=== PATIENT | female | born 1985 | race Caucasian/White ===

== ENCOUNTER 2019-07-23 12:49 | Outpatient (CLI) | payer OTHER, SELFPAY ==
--- NOTE | ~2019-07-23 | CT_ITS ---
EXAMINATION: CT abdomen pelvis w con INDICATION: Left upper quadrant pain TECHNIQUE: Computed tomographic images of the abdomen and pelvis were obtained after the administrati on of 100 cc of Omnipaque 350 intravenous contrast. The dose-length product (DLP) was 1473.06 mGy-cm. Automated exposure control and iterative reconstruction technique were employed. COMPARISON: 05/18/2005 FINDINGS: The lung bases are clear. The heart size is normal. Punctate calcifications in an otherwise normal spleen likely represent healed granulomatous disease. The liver, pancreas, gallbladder, and a drenal glands are normal. There is a 7 mm cyst of the right kidney. The left kidney is unremarkable. No pathologically enlarged abdominal or pelvic lymph nodes are identified. There is no free intraperi toneal gas or evidence of bowel obstruction. There are changes of interval appendectomy. There is mil d lumbar spondylosis. There appears to be a short segment of colonic wall thickening and inflammatory change near the hepatic flexure of the transverse colon. IMPRESSION: 1. Possible mild colitis involving the hepatic flexure of the transverse colon. Reviewed, dictated and finalized at location A.
== END 2019-07-23 12:50 | disposition home or self-care (01) ==
PROVIDERS: PCP Family Medicine; Visit Provider Family Medicine
DX: R10.12 Left upper quadrant pain (principal); R93.89 Abnormal findings on diagnostic imaging of other specified body structures
CPT/HCPCS: 74177; Q9967

== ENCOUNTER 2019-08-11 13:48 | Emergency (ER) | payer OTHER, SELFPAY ==
--- NOTE | ~2019-08-11 | CT_ITS ---
EXAMINATION: CT abdomen pelvis w con EXAM DATE: 08/11/2019 16:19 INDICATION: Left side abdominal pain. TECHNIQUE: Spiral CT of the abdomen and pelvis was performed following intravenous injection of 100 m L Omnipaque 350. Axial, coronal and sagittal images were reviewed. The dose-length product (DLP) fo r this examination was 1540.54 mGy-cm. The exposure was tailored according to patient size (auto mA exposure control), and iterative reconstruction (ASIR) was used as additional dose reduction techniqu e. Comparison is made to prior examination from 07/23/2019 . FINDINGS: The liver, spleen, adrenal glands and pancreas are unremarkable. Gallbladder is unremarkab le. No biliary obstruction. Portal and splenic veins are patent. Kidneys enhance symmetrically. T here is no hydronephrosis. The uterus and ovaries are unremarkable, no adnexal mass. The bladder i s unremarkable. There is no retroperitoneal or pelvic lymphadenopathy. There are surgical changes consistent with appendectomy. The stomach and small bowel are unremarkab le. There is expected amount of colonic stool. No free intraperitoneal gas. The heart is normal in size. There are no pericardial or pleural effusions. The lung bases are unremarkable. The bones are unremarkable. IMPRESSION: 1. No acute intra-abdominal findings. Reviewed, dictated and finalized at location A.
[2019-08-11 13:58] VITALS: BP 147/76; PULSE 96; RESP 16; TEMP 37.4; O2SAT 100
[2019-08-11 14:31] LABS: Add Urine Microscopic? YES; Appearance Urine Clear (Clear); Bacteria Urine Trace /hpf; Bilirubin Urine Negative (Negative); Blood Urine Negative (Negative); Color Urine Yellow (Yellow); Glucose Urine UA Negative (Negative); Ketones Urine Negative (Negative); Leukocyte Esterase Ur Negative LEU/UL (Negative); Mucus Urine Rare /lpf; Nitrate Urine Negative (Negative); Protein Urine Negative (Negative); RBC Urine 0-2 /hpf (0-2); Squamous Epithelial Cell Urine Few /hpf (Few); Urobilinogen Urine Negative mg/dL (<2.0); WBC Urine 0-3 /hpf
[2019-08-11 15:34] LABS: Basophils Percent Auto 0.5 % (0.2-1.2); Eosinophils Absolute Auto 0.1 K/mm3 (0-0.3); Eosinophils Percent Auto 1.3 % (0-4.4); Hematocrit 41.9 % (37.0-47.0); Hemoglobin 13.6 g/dL (12.0-15.0); Immature Granulocyte Absolute 0.01 K/mm3 (0.00-0.031); Immature Granulocyte Percent A 0.2 % (0-0.5); Lymphocytes Absolute Auto 1.33 K/mm3 (0.9-3.2); Lymphocytes Percent Auto 24.1 % (18.3-44.2); Mean Corpuscular HGB Conc 32.5 g/dl (32-36); Mean Corpuscular Hemoglobin 27.1 pg (26-34); Mean Corpuscular Volume 83.6 fl (80-100); Mean Platelet Volume 12.2 fl (7.4-10.4); Monocytes Absolute Auto 0.3 K/mm3 (0.1-0.6); Monocytes Percent Auto 4.9 % (2.6-8.5); Neutrophils Absolute Auto 3.8 K/mm3 (1.3-6.7); Platelet Count Result 265 k/mm3 (150-375); Red Blood Count 5.01 M/mm3 (4.2-5.4); Red Cell Distribution Width 12.9 % (11.5-14.5); White Blood Count 5.5 K/mm3 (4.5-10.0)
[2019-08-11 15:39] LABS: Blood Urea Nitrogen 13 mg/dL (7-17); Calcium 9.8 mg/dL (8.4-10.2); Carbon Dioxide 29 mmol/L (22-30); Chloride 107 mmol/L (98-107); Estimated CRCL calculation 116 ml/min; Estimated Glomerular Filt Rate > 60; Glucose 85 mg/dL (65-105); Sodium 142 mmol/L (137-145)
[2019-08-11 16:04] VITALS: BP 132/81; PULSE 82; RESP 18; TEMP 36.9; O2SAT 99
--- NOTE | 2019-08-11 16:28 | ED.BACK ---
HPI - Back Pain/Injury General Chief Complaint: Back Pain/Injury Stated Complaint: Flank pain, UTI symptoms Time Seen by Provider: 08/11/19 14:27 Source: patient Mode of arrival: ambulatory Limitations: no limitations History of Present Illness HPI Narrative: This is a 34 year old female that presents to the ER for intermittent left sided abdominal pain x 2 weeks. Reports she was seen at the urgent care for this and diagnosed with a UTI. Reports she has been taking Macrobid with little relief. Also reports she had seen her PCP for this and had a CT scan of her abdomen and pelvis 2 weeks ago. Was told she had a cyst on her kidney. Does report some urinary discomfort. Denies fever, nausea, vomiting, or hematuria. Related Data Home Medications Medication Instructions Recorded Confirmed nitrofurantoin macrocrystal 08/11/19 Allergies Allergy/AdvReac Type Severity Reaction Status Date / Time No Known Allergies Allergy Verified 07/16/19 09:39 Review of Systems Review of Systems: Narrative: CONSTITUTIONAL: Denies fever GASTROINTESTINAL: Reports abdominal pain. Denies nausea, vomiting, or diarrhea. GENITOURINARY: Reports dysuria. Denies hematuria. All systems reviewed & are unremarkable except as noted in HPI and below PMFSH Past Medical History Medical History (Updated 08/11/19 @ 17:18 by Marylin Dupont PA-C) LUQ abdominal pain Social History Social History Smoking status: Never smoker Alcohol intake: current Exam Narrative: Exam Narrative: GENERAL: Well-appearing, obese, and in no acute distress. HEAD: Normocephalic, atraumatic. EYES: EOMI. CHEST: Clear to auscultation. No respiratory distress. No wheezes rales or rhonchi HEART: Regular rate and rhythm. No murmur heard. Normal peripheral pulses. ABDOMEN: Soft, nondistended, normal active bowel sounds. Mild tenderness palpation of the left side abdomen, without guarding. No CVA tenderness EXTREMITIES: Normal range of motion. No edema. SKIN: Warm, dry, no rash. NEURO: No focal deficits. Alert and oriented x3. PSYCH: Normal mood and affect Course Vital Signs Vital signs: Vital Signs Temperature 99.4 F 08/11/19 13:58 Pulse Rate 96 08/11/19 13:58 Respiratory Rate 16 08/11/19 13:58 Blood Pressure 147/76 H 08/11/19 13:58 Pulse Oximetry 100 08/11/19 13:58 Temperature 98.4 F 08/11/19 16:04 Pulse Rate 82 08/11/19 16:04 Respiratory Rate 18 08/11/19 16:04 Blood Pressure 132/81 08/11/19 16:04 Pulse Oximetry 99 08/11/19 16:04 MDM - Back Pain/Injury MDM Narrative Medical decision making narrative: Patient presents to the ER for left sided flank pain and dysuria. She is afebrile and nontoxic appearing. CBC and metabolic panel are without acute changes. UA is normal. CT abdomen/pelvis is without acute changes. Patient had been taking Macrobid for her UTI by urgent care and has not had relief of symptoms. Will switch to different oral antibiotic. Patient is stable and felt appropriate for further outpatient evaluation. Patient is to follow up with her primary care doctor Lab Data Attestation: I reviewed the patient's lab results. Result diagrams: 08/11/19 15:19 08/11/19 15:19 Labs: Lab Results 08/11/19 08/11/19 08/11/19 Range/Units 14:19 15:19 15:19 WBC 5.5 (4.5-10.0) K/mm3 RBC 5.01 (4.2-5.4) M/mm3 Hgb 13.6 (12.0-15.0) g/dL Hct 41.9 (37.0-47.0) % MCV 83.6 (80-100) fl MCH 27.1 (26-34) pg MCHC 32.5 (32-36) g/dl RDW 12.9 (11.5-14.5) % Plt Count 265 (150-375) k/mm3 MPV 12.2 H (7.4-10.4) fl Immature Gran % (Auto) 0.2 (0-0.5) % Neut % (Auto) 69.0 (45.5-73.1) % Lymph % (Auto) 24.1 (18.3-44.2) % [place] % (Auto) 4.9 (2.6-8.5) % Eos % (Auto) 1.3 (0-4.4) % Baso % (Auto) 0.5 (0.2-1.2) % Lymph # (Auto) 1.33 (0.9-3.2) K/mm3 [place] # (Auto) 0.3 (0.1-0.6) K/mm3
[2019-08-11 17:30] VITALS: BP 129/86; PULSE 68; RESP 18; TEMP 36.4; O2SAT 100
== END 2019-08-11 17:47 | disposition home or self-care (01) ==
PROVIDERS: Physician Assistant; Emergency Provider Emergency Medicine; PCP Family Medicine
DX: N30.00 Acute cystitis without hematuria (principal)
CPT/HCPCS: 36415; 74177; 80048; 81001; 81025; 85025; 99284; Q9967

== ENCOUNTER 2021-12-29 12:18 | Outpatient (CLI) | payer OTHER, SELFPAY ==
--- NOTE | ~2021-12-29 | US_ITS ---
US renal BI 12/29/2021 13:10 Procedure: Realtime transabdominal ultrasound of the kidneys and bladder. Indication: Renal cyst Comparison: CT dated 08/11/2019 Findings: Renal echotexture is normal bilaterally without hydronephrosis, contour deforming mass or r enal calculus. There is a right renal cyst measuring 2.4 x 2.2 x 1.6 cm. The right kidney measures 10 .9 cm and left kidney measures 12.3 cm. Bladder within normal limits. Impression: 1: Right renal cyst medially measuring 2.4 cm maximum dimension. Reviewed, dictated and finalized at location B. Impression: 1: Right renal cyst medially measuring 2.4 cm maximum dimension.
== END 2021-12-29 12:19 | disposition home or self-care (01) ==
PROVIDERS: PCP Internal Medicine; Visit Provider Internal Medicine
DX: N28.1 Cyst of kidney, acquired (principal)
CPT/HCPCS: 76775

== ENCOUNTER 2022-03-25 13:09 | Outpatient (CLI) | payer OTHER, SELFPAY ==
[2022-03-25 13:39] LABS: Alanine Aminotransferase 23 U/L (6-35); Albumin Level 4.1 g/dL (3.5-5.1); Alkaline Phosphatase 53 U/L (38-126); Anion Gap 4 mmol/L (8-16); Aspartate Amino Transferase 22 U/L (14-36); Bilirubin,Total 0.4 mg/dL (0.2-1.3); Blood Urea Nitrogen 8 mg/dL (7-17); Calcium 8.8 mg/dL (8.4-10.2); Carbon Dioxide 31 mmol/L (22-30); Chloride 104 mmol/L (98-107); Cholesterol 193 mg/dL (0-200); Estimated Glomerular Filt Rate > 60; Glucose 82 mg/dL (65-110); HDL Direct 49 mg/dL; Potassium 3.9 mmol/L (3.4-5.0); Sodium 139 mmol/L (137-145); Triglycerides 72 mg/dL (<150)
[2022-03-25 13:50] LABS: LDL Cholesterol Direct 112 mg/dL
[2022-03-25 15:03] LABS: Free T4 Free Thyroxine 1.16 ng/mL (0.78-2.19); Vitamin D 25 Hydroxy 21.3 ng/mL
[2022-03-28 13:03] LABS: Insulin Level Total 8.5 uIU/mL (<=19.6)
[2022-03-28 19:29] LABS: C-Peptide 2.94 ng/mL (0.80-3.85)
== END 2022-03-25 13:10 | disposition home or self-care (01) ==
LOC: ANHLAB 13:11
PROVIDERS: PCP Internal Medicine; Visit Provider Internal Medicine
DX: E55.9 Vitamin D deficiency, unspecified (principal); E03.9 Hypothyroidism, unspecified; Z79.899 Other long term (current) drug therapy
CPT/HCPCS: 36415; 80053; 80061; 82306; 83036; 83525; 84439; 84443; 84681

== ENCOUNTER 2022-10-14 07:17 | Outpatient (CLI) | payer OTHER, SELFPAY ==
[2022-10-14 07:47] LABS: Chloride 105 mmol/L (98-107)
[2022-10-14 07:54] LABS: Alanine Aminotransferase 30 U/L (6-35); Albumin Level 4.3 g/dL (3.5-5.1); Alkaline Phosphatase 57 U/L (38-126); Anion Gap 7 mmol/L (8-16); Aspartate Amino Transferase 31 U/L (14-36); Bilirubin,Total 0.3 mg/dL (0.2-1.3); Blood Urea Nitrogen 10 mg/dL (7-17); Carbon Dioxide 28 mmol/L (22-30); Cholesterol 133 mg/dL (0-200); Estimated Glomerular Filt Rate > 60; Glucose 117 mg/dL (65-110); HDL Direct 35 mg/dL; Potassium 3.6 mmol/L (3.4-5.0); Sodium 140 mmol/L (137-145); Triglycerides 96 mg/dL (<150)
[2022-10-14 08:00] LABS: LDL Cholesterol Direct 84 mg/dL
[2022-10-14 08:06] LABS: Free T4 Free Thyroxine 1.08 ng/mL (0.78-2.19); Vitamin D 25 Hydroxy 24.5 ng/mL
[2022-10-14 08:15] LABS: Hemoglobin A1C 5.2 % (<5.7)
[2022-10-18 11:04] LABS: Insulin Level Total 31.5 uIU/mL (<=19.6)
[2022-10-18 13:27] LABS: Homocysteine 7.4 umol/L (<10.4)
[2022-10-20 05:46] LABS: Triiodothyronine T3 Free 3.1 pg/mL (2.3-4.2)
== END 2022-10-14 07:18 | disposition home or self-care (01) ==
LOC: ANHLAB 07:18
PROVIDERS: PCP Internal Medicine; Visit Provider Internal Medicine
DX: Z76.89 Persons encountering health services in other specified circumstances (principal); E03.9 Hypothyroidism, unspecified; E55.9 Vitamin D deficiency, unspecified; Z13.1 Encounter for screening for diabetes mellitus; Z68.37 Body mass index [BMI] 37.0-37.9, adult; Z79.899 Other long term (current) drug therapy; Z13.220 Encounter for screening for lipoid disorders
CPT/HCPCS: 36415; 80053; 80061; 82306; 83036; 83090; 83525; 84439; 84443; 84481

== ENCOUNTER 2024-01-23 08:39 | Outpatient (CLI) | payer BC, SELFPAY ==
[2024-01-23 09:00] LABS: Basophils Percent Auto 0.5 % (0.2-1.2); Eosinophils Absolute Auto 0.1 K/mm3 (0-0.3); Eosinophils Percent Auto 1.7 % (0-4.4); Hematocrit 43.4 % (37.0-47.0); Hemoglobin 14.1 g/dL (12.0-15.0); Immature Granulocyte Absolute 0.02 K/mm3 (0.00-0.031); Immature Granulocyte Percent A 0.3 % (0-0.5); Lymphocytes Absolute Auto 1.46 K/mm3 (0.9-3.2); Mean Corpuscular HGB Conc 32.5 g/dl (32-36); Mean Corpuscular Hemoglobin 27.2 pg (26-34); Mean Corpuscular Volume 83.8 fl (80-100); Mean Platelet Volume 10.7 fl (7.4-10.4); Monocytes Absolute Auto 0.3 K/mm3 (0.1-0.6); Neutrophils Absolute Auto 4.7 K/mm3 (1.3-6.7); Neutrophils Percent Auto 70.5 % (45.5-73.1); Platelet Count Result 263 k/mm3 (150-375); Red Blood Count 5.18 M/mm3 (4.2-5.4); Red Cell Distribution Width 13.2 % (11.5-14.5); White Blood Count 6.6 K/mm3 (4.5-10.0)
[2024-01-23 09:15] LABS: Alanine Aminotransferase 22 U/L (6-35); Albumin Level 4.8 g/dL (3.5-5.1); Alkaline Phosphatase 60 U/L (38-126); Anion Gap 9 mmol/L (4-12); Aspartate Amino Transferase 24 U/L (14-36); Bilirubin,Total 0.4 mg/dL (0.2-1.3); Blood Urea Nitrogen 13 mg/dL (7-17); Calcium 9.7 mg/dL (8.4-10.2); Carbon Dioxide 26 mmol/L (22-30); Chloride 106 mmol/L (98-107); Cholesterol 150 mg/dL (0-200); Estimated Glomerular Filt Rate > 60; Glucose 91 mg/dL (65-110); HDL Direct 45 mg/dL; Potassium 4.3 mmol/L (3.4-5.0); Sodium 141 mmol/L (137-145); Triglycerides 82 mg/dL (<150)
[2024-01-23 09:26] LABS: LDL Cholesterol Direct 74 mg/dL
[2024-01-23 10:20] LABS: Free T4 Free Thyroxine 0.77 ng/mL (0.78-2.19); Vitamin D 25 Hydroxy 46.9 ng/mL
[2024-01-23 11:45] LABS: Hemoglobin A1C 5.1 % (<5.7)
== END 2024-01-23 08:40 | disposition home or self-care (01) ==
PROVIDERS: PCP Internal Medicine; Visit Provider Internal Medicine
DX: E03.9 Hypothyroidism, unspecified (principal); E78.2 Mixed hyperlipidemia; E55.9 Vitamin D deficiency, unspecified; Z79.899 Other long term (current) drug therapy
CPT/HCPCS: 36415; 80053; 80061; 82306; 83036; 84439; 84443; 85025

== ENCOUNTER 2024-08-06 13:31 | Outpatient (CLI) | payer BC, SELFPAY ==
--- OUTSIDE RECORDS SUMMARY | 2024-08-06 13:38 | XMS_ITS | Referral Summary ---
Author Organization [facility] [address] [place] [id number] Care Team Providers Care Nature Photographer Name Role Phone Tucker Sidhu MD Primary Care Provider [phone] Jewel Brooks MD Unavailable [phone] Encounters Date Type Department Care Team Description 08/01/2024 Results Follow-Up [facility] at [address] [address] Amee Marquez NP XR Foot Left 3 or More Views 08/01/2024 8:40 AM CDT Ancillary Procedure [facility] at [address] [address] Left foot pain 08/01/2024 8:15 AM CDT Office Visit [facility] at [address] [address] Amee Marquez NP Left foot pain (Primary Dx) from Last 3 Months Allergies No known active allergies Medications inulin (FIBER GUMMIES ORAL)Indication s:constipation Take 5 g by mouth nightly Active biotin 2,500 mcg capsuleIndicati ons:Biotin Deficiency Take 1 capsule by mouth nightly Active cyclobenzaprine (FLEXERIL) 10 mg tabletIndicatio ns:Post Surgical Pain Take one tablet up to 3 times per day as needed for muscle spasms. 30 tablet 1 Active Slynd tablet tablet 2 Active metFORMIN (GLUCOPHAGE) 500 mg tablet Take 1 tablet (500 mg total) by mouth 2 (two) times a day 4 Active rosuvastatin (CRESTOR) 20 mg tablet Take 1 tablet (20 mg total) by mouth daily [address] (CYMBALTA) 60 mg capsule TAKE 1 CAPSULE BY MOUTH ONCE DAILY. TO START AFTER FIRST WEEK OF 30MG IS FINISHED 4 Active mupirocin (BACTROBAN) 2 % ointmentIndicat ions:Infected cyst of skin Apply topically 3 (three) times a day 22 g 4 Active Additional Information Patient not taking.Reported on 08/01/2024 LORazepam (ATIVAN) 0.5 mg tablet 1 tablet (0.5 mg total) every 8 (eight) hours as needed for anxiety 5 Active meloxicam (MOBIC) 15 mg tablet Take 1 tablet (15 mg total) by mouth daily for 14 days 14 tablet 5 08/16/19 25 Active Active Problems Problem Noted Date Diagnosed Date Left breast abscess 01/13/2021 Infection of breast implant 01/12/2021 Overview (01/12/2021): Added automatically from request for surgery [id number] S/P breast reconstruction, left 11/18/2020 Overview (11/18/2020): Added automatically from request for surgery [id number] BRCA gene mutation positive 12/04/2018 Acquired hypothyroidism 10/31/2016 Assessment & Plan (10/31/2016 1:20 PM CDT): - Synthroid 75 mcg oral daily - labs soon - will call back with test results and further adjust dose if needed - will obtain records from Dr. Yoo's office Instructions for taking levothyroxine Brand name is preferred Take thyroid pill all by itself Take thyroid pill one hour before food or 2 to 3 hours after food Heat, humidity, and direct sunlight will cause a loss of potency Never store thyroid pill in the bathroom The medication should be taken daily. If one or more pills are missing in a week, they can be taken all together at once, making sure at the end of the week, 7 tabs have been taken. - follow up in 3-6 months Morbid obesity with BMI of 45.0-49.9, adult 10/05 Assessment & Plan (10/31/2016 1:17 PM CDT): Obesity is newly identified. Discussed the patient's BMI. The BMI is above average; BMI management plan is completed. General weight loss/lifestyle modification strategies discussed (elicit support from others; identify saboteurs; non-food rewards, etc). Behavioral treatment: stress management. Diet interventions: moderate (500 kCal/d) deficit diet and referral to dietitian for guidance in these changes. Informal exercise measures discussed, e.g. taking stairs instead of elevator. Regular aerobic exercise program discussed. Hepatic steatosis 10/31/2016 Immunizations Immunization Administration Dates Next Due Influenza, Quadrivalent, Spl it, Preservative Free, Intramuscular 01/13/2021 Social History Tobacco Use Types Packs/Day Years Used Date Smoking Tobacco: Never Smokeless Tobacco: Never Tobacco Cessation:Counseling Given: Not Answered Alcohol Use Standard Drinks/Week Comments Yes 2 (1 standard drink = 0.6 oz pur e alcohol) AUDIT-C Answer Date Recorded Q1: How often do you have a drink containing alc ohol? Monthly or less 12/18/2020 Q2: How many drinks containi ng alcohol do you have on a typical day when you are drinking? 1 or 2 12/18/2020 Q3: How often do you have si x or more drinks on one occasion? Never 12/18/2020 Comments No Sex and Gender Information Value Date Recorded Sex Assigned at Not on file Legal Sex Female 3:07 PM CDT Gender Identity Not on file Sexual Orientation Not on file Last Filed Vital Signs Vital Sign Reading Time Taken Comments Blood Pressure 136/85 08/01/2024 8:27 AM CDT Pulse 98 08/01/2024 8:27 AM CDT Temperature 36.7 C (98 F) 08/01/2024 8:27 AM CDT Respiratory Rate 18 08/01/2024 8:27 AM CDT Oxygen Saturation 96% 08/01/2024 8:27 AM CDT Inhaled Oxygen Concentration - - Weight 130.8 kg (288 lb 4.8 oz) 08/01/2024 8:27 AM CDT Height 170.2 cm (5' 7.01) 08/01/2024 8:27 AM CD T Body Mass Index 45.14 08/01/2024 8:27 AM CDT Plan of Treatment Not on file Medical Devices Implanted Type Area Decision Unit Rn Device Identifier Shelf Expiration Date Model / Serial / Lot Synovis Gini Allian 2753 [place] 2.5mm Ring Pin Ultrasonic Doppler 20mhz Web Site Designer Anastomosis Latex Free - S0 - [id number] Implanted:Qty: 1 on 10/29/2020 by Jewel Brooks MD at [facility] Clip Left: Breast Synovis Micro Celles Allian [id number] 02/24/2025 2753 / 0 / [id number] Synovis Gini Allian [address] [place] 2.5mm Ring Pin Ultrasonic Doppler 20mhz Web Site Designer Anastomosis Latex Free - S0 - [id number] Implanted:Qty: 1 on 10/29/2020 by Jewel Brooks MD at [facility] Clip Left: Breast Synovis Gini Allian [id number] 03/13/2025 2753 / 0 / [id number] Synovis Gini Allian 275[address] [place] 2.5mm Ring Pin Ultrasonic Doppler 20mhz Web Site Designer Anastomosis Latex Free - S0 - [id number] Implanted:Qty: 1 on 10/29/2020 by Jewel Brooks MD at [facility] Clip Left: Breast Synovis Gini Allian [id number] 03/27/2025 2753 / 0 / [id number] Synovis Gini Allian [address] [place] 2.5mm Ring Pin Ultrasonic Doppler 20mhz Web Site Designer Anastomosis Latex Free - S0 - [id number] Implanted:Qty: 1 on 10/29/2020 by Jewel Brooks MD at [facility] Clip Right: Breast Synovis Micro Celles Allian [id number] 02/24/2025 2753 / 0 / [id number] Synovis Gini Allian [id number] [place] Microvascular 3mm Ring Pin Protective Cover Jaw Assembly Latex Free - S0 - [id number] Implanted:Qty: 1 on 10/29/2020 by Jewel Brooks MD at [facility] Clip Right: Breast Synovis Gini Darius [id number] 07/09/2025 [id number] / 0 / [id number] Synovis Gini Darius [id number] [place] Microvascular 2.5mm Ring Pin Protective Cover Jaw Assembly Latex Free - [id number] Implanted:Qty: 1 on 10/30/2020 by Jewel Brooks MD at [facility] Left: Breast Synovis Gini Darius 07/31/2024 [id number] / / Explanted Type Area Decision Unit Rn Device Identifier Shelf Expiration Date Model / Serial / Lot Allergan [employer] [id number] Implant Mammary Natrelle Te Smooth 728u-[id number]-13-[id number] With Fourte - [id number] - [id number] Implanted:Qty : 1 on 12/18/2020 by Jewel Brooks MD at [facility] Explanted:Qty : 1 on 01/13/2021 by Jewel Brooks MD at [facility] Left: Breast Allergan [employer] [id number] 01/22/2024 [id number]-[id number] 4-T / [id number] / [id number] Procedures Procedure Name Priority Date/Time Associated Diagnosis Comments XR FOOT LEFT 3 OR MORE VIEWS Schedule PEEWEE, Read PEEWEE (Appt Today, Awaiting Results) 08/01/2024 8:47 AM CDT Left foot pain from Last 3 Months Results * XR Foot Left 3 or More Views (08/01/2024 8:47 AM CDT) Anatomical Region Laterality Modality Lower Extremities, Foot Left Digital Radiography 08/01/2024 1:37 PM CDT Narrative 08/01/2024 1:40 PM CDT EXAM DESCRIPTION: XR FOOT LEFT 3 OR MORE VIEWS REASON FOR STUDY: Other (type), left foot xray Dorsal foot pain for two weeks. No known injury. No prior surgery to the foot. TECHNIQUE: 3 radiographic view(s) of the left foot . COMPARISON: None FINDINGS: BONES/JOINTS: There is no acute fracture or dislocation. The joint spaces are relatively well preserved. There is a tiny plantar calcaneal spur. There is minimal spurring along the dorsal margin of the talus. SOFT TISSUES: There is diffuse soft tissue swelling about the forefoot and midfoot, nonspecific. IMPRESSION: 1. No acute fracture or dislocation. If pain persists, follow-up radiographs in 7-10 days would be recommended. 2. Soft tissue swelling about the midfoot and forefoot. THIS IS AN ELECTRONICALLY VERIFIED FINAL REPORT 08/01/2024 1:40 PM - Electronically signed by Purvi Badillo M.D. TW T: Report ID: [id number] Reading Location: [id number] Procedure Note Purvi Badillo MD - 08/01/2024 EXAM DESCRIPTION: XR FOOT LEFT 3 OR MORE VIEWS REASON FOR STUDY: Other (type), left foot xray Dorsal foot pain for two weeks. No known injury. No prior surgery to thefoot. TECHNIQUE: 3 radiographic view(s) of the left foot . COMPARISON: None FINDINGS: BONES/JOINTS: There is no acute fracture or dislocation. Thejoint spaces are relatively well preserved. There is a tiny plantar calcanealspur. There is minimal spurring along the dorsal margin of the talus. SOFT TISSUES: There is diffuse soft tissue swelling about the forefoot and midfoot, nonspecific. IMPRESSION: 1. No acute fracture or dislocation. If pain persists, follow-up radiographs in 7-10 days would be recommended. 2. Soft tissue swelling about the midfoot and forefoot. THIS IS AN ELECTRONICALLY VERIFIED FINAL REPORT 08/01/2024 1:40 PM - Electronically signed by Purvi Badillo M.D. TW T: Report ID: [id number] Reading Location: [id number] Amee Marquez NP IMG XR PROCEDURES Final Result from Last 3 Months Insurance [facility] [employer] Advance Directives For more information, please contact: [phone] * Full Code (Latest Code Status on File) Date Activated Date Inactivated Comments 01/13/2021 3:00 PM 01/13/2021 10:03 PM * Full Code Date Activated Date Inactivated Comments 10/29/2020 8:34 PM 11/03/2020 3:32 PM Care Teams Nature Photographer Relationship Specialty Start Date End Date Tucker Sidhu MD PCP - General Family Medicine 12/13/19 Jewel Brooks MD [address] [facility] [address] [place] [address] Referring Physician Plastic Surgery 12/18/20
--- OUTSIDE RECORDS SUMMARY | 2024-08-06 13:38 | XMS_ITS | Clinical Summary ---
Author Organization [facility] Address [address] [place] [address] Care Team Providers Care Petroleum Engineering Teacher Name Role Phone Tucker Sidhu MD Primary Care Provider [phone] Source Comments [facility],non-owned Affiliates and Associated Physician Practices is amultiple site organization consisting of ambulatory clinics and hospital sitesin [place], [place], [place] and [place]. This disclosure is being madepursuant to the Care Everywhere program and may not contain all information available regarding this patient. Last updated 17.[facility] Allergies No known active allergies Medications * Be aware that medications may not be up to date on this document. Alwaysverify current medications with the patient. 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 Gender Identity Not on file Sexual Orientation Not on file Plan of Treatment Health Maintenance Due Date Last Done Comments HIV SCREENING 02/12/2000 HEPATITIS C SCREENING 02/07/2003 DTAP/TDAP/TD VACCINES (1 - Tdap) 02/12/2004 HEPATITIS B VACCINE (1 of 3 - 19+ 3-dose series) 02/12/2004 COVID-19 VACCINE (1 - 2023-2 5 season) 2023 DEPRESSION SCREENING 03/06/2024 INFLUENZA VACCINE (Season Ended) 2024 01/21/20 21 ZOSTER VACCINE (1 of 2) 2035 HIB VACCINE Aged Out No longer eligi ble based on patient's age to complete this topic HPV VACCINE Aged Out No longer eligi ble based on patient's age to complete this topic MENINGOCOCCAL (Group B) VACC INE SHARED DECISION-MAKING Aged Out No longer eligibl e based on patient's age to complete this topic MENINGOCOCCAL GROUPS A/C/Y/W VACCINE Aged Out No longer eligible b ased on patient's age to complete this topic PNEUMOCOCCAL VACCINE Aged Out No long er eligible based on patient's age to complete this topic Insurance [facility] Care Teams Petroleum Engineering Teacher Relationship Specialty Start Date End Date Tucker Sidhu MD [address] [place] [address] PCP - General 06/13/20
--- OUTSIDE RECORDS SUMMARY | 2024-08-06 13:38 | XMS_ITS | Clinical Summary ---
Author Organization [facility] Physician Office Building [address] [place] [id number] Care Team Providers Care Metallurgical Engineering Teacher Name Role Phone Tucker Sidhu MD Primary Care Provider [phone] Jewel Brooks MD Unavailable [phone] Allergies No known active allergies Medications inulin [...] (01/12/2021): Added automatically from request for surgery [id number] S/P breast reconstruction, left 11/18/2020 Overview (11/18/2020): Added automatically from request for surgery [id number] BRCA gene mutation positive 12/04/2018 Acquired hypothyroidism [...] aerobic exercise program discussed. Hepatic steatosis 10/31/2016 Encounters Date Type Department Care Team Description 08/01/2024 8:40 AM CDT Ancillary Procedure [facility] Imaging at [address] [address] Left foot pain 08/01/2024 8:15 AM CDT Office Visit [facility] at [address] [address] Amee Maqruez NP Left foot pain (Primary Dx) 08/01/2024 Results Follow-Up [facility] at [address] [id number] Amee Marquez NP XR Foot Left 3 or More Views from Last 3 Months Immunizations Immunization Administration Dates Next Due Influenza, Quadrivalent, Spl it, Preservative Free, Intramuscular 01/13/2021 Surgical History Surgery Date Site/Laterality Comments APPENDECTOMY TONSILLECTOMY APPENDECTOMY BREAST SURGERY 10/04/2020 - 11/03/2020 Bilateral Medical History Medical History Date Comments Thyroid disease Wears glasses Wears contact lenses Family History Medical History Relation Name Comments Heart attack Maternal Grandfather Ovarian cancer Maternal Grandmother Heart disease Mother Skin cancer Paternal Grandmother Breast cancer Sister Anesthesia problems Neg Hx Relation Name Status Comments Maternal Grandfather Maternal Grandmother Mother Paternal Grandmother Sister Social History Tobacco Use Types Packs/Day Years [...] on file Sexual Orientation Not on file Obstetrics History Last Filed Vital Signs Vital Sign Reading [...] 08/01/2024 8:27 AM CDT Plan of Treatment Health Maintenance Due Date Last Done Comments Cervical Cancer Screening 1985 Hepatitis C Screening 1985 DTaP/Tdap/Td Vaccine (1 - Tdap) 02/12/1996 Varicella Vaccines (1 of 2 - 13+ 2-dose series) 1998 Hepatitis B Screening 2003 Regular Well Visit/Exam 18-64 2003 Pneumococcal vaccine <65 (1 of 2 - PCV) 02/12/2004 Depression Screening 10/31/2017 10/31/2016 Covid-19 Vaccine (3 - 2023-2 5 season) 2023 04/28/2020, 04/05/2020 Influenza Vaccine (Season Ended) 2024 11/22/2021, 01/13/2021, 05/01/2019 HPV Vaccines Aged Out No longer eligi ble based on patient's age to complete this topic Medical Devices Implanted Type Area Gate Technician Device Identifier Shelf Expiration Date Model / Serial / Lot [employer] Mikhailian 2753 Herlong 2.5mm Ring Pin Ultrasonic Doppler 20mhz Appliance Assembler Anastomosis Latex Free - S0 - [id number] Implanted:Qty: 1 on 10/29/2020 by Jewel Brooks MD at [facility] Clip Left: Breast [employer] Darius [id number] 02/24/2025 2753 / 0 / [id number] [employer] Allian 2753 Herlong 2.5mm Ring Pin Ultrasonic Doppler 20mhz Appliance Assembler Anastomosis Latex Free - S0 - [id number] Implanted:Qty: 1 on 10/29/2020 by Jewel Brooks MD at [facility] Clip Left: Breast [employer] Allian [id number] 03/13/2025 2753 / 0 / [id number] [employer] Allian 2753 Herlong 2.5mm Ring Pin Ultrasonic Doppler 20mhz Appliance Assembler Anastomosis Latex Free - S0 - [id number] Implanted:Qty: 1 on 10/29/2020 by Jewel Brooks MD at [facility] Clip Left: Breast [employer] Allian [id number] 03/27/2025 2753 / 0 / [id number] [employer] Allian 2753 Herlong 2.5mm Ring Pin Ultrasonic Doppler 20mhz Appliance Assembler Anastomosis Latex Free - S0 - [id number] Implanted:Qty: 1 on 10/29/2020 by Jewel Brooks MD at [facility] Clip Right: Breast [employer] Allian [id number] 02/24/2025 2753 / 0 / [id number] [employer] Allian [id number] Herlong Microvascular 3mm Ring Pin Protective Cover Jaw Assembly Latex Free - S0 - [id number] Implanted:Qty: 1 on 10/29/2020 by Jewel Brooks MD at [facility] Clip Right: Breast [employer] Allian [id number] 07/09/2025 [id number] / 0 / [id number] [employer] Allian [id number] Herlong Microvascular 2.5mm Ring Pin Protective Cover Jaw Assembly Latex Free - [id number] Implanted:Qty: 1 on 10/30/2020 by Jewel Brooks MD at [facility] Left: Breast [employer] Allian 07/31/2024 [id number] / / Explanted Type Area Gate Technician Device Identifier Shelf Expiration Date Model / Serial / Lot [employer] [id number]-Hf-18-T Implant Mammary Natrelle Te Smooth 963u-Wz-77-[id number] With Fourte - [id number] - [id number] Implanted:Qty : 1 on 12/18/2020 by Jewel Brooks MD at [facility] Explanted:Qty : 1 on 01/13/2021 by Jewel Brooks MD at [facility] Left: Breast [employer] [id number] 01/22/2024 [id number]-MX-1 4-T / [id number] / [id number] Procedures Procedure Name Priority Date/Time Associated Diagnosis [...] Purvi Badillo M.D. TW T: Report ID: [id number] Reading Location: [id number] Procedure Note Purvi Badillo MD - 08/01/2024 [...] Purvi Badillo M.D. TW T: Report ID: [id number] Reading Location: [place] [address] Amee Marquez NP IMG XR PROCEDURES Final Result from Last 3 Months Insurance [facility] [employer] [id number] Advance Directives For more information, please contact: [phone] * Full Code (Latest Code Status on File) Date Activated Date Inactivated Comments 01/13/2021 3:00 PM 01/13/2021 10:03 PM * Full Code Date Activated Date Inactivated Comments 10/29/2020 8:34 PM 11/03/2020 3:32 PM Care Teams Metallurgical Engineering Teacher Relationship Specialty Start Date End Date Tucker Sidhu MD PCP - General Family Medicine 12/13/19 Jewel Brooks MD [address] [facility] [address] [place] [id number] Referring Physician Plastic Surgery 12/18/20
--- OUTSIDE RECORDS SUMMARY | 2024-08-06 13:38 | XMS_ITS | Encounter Summary ---
Author Organization [facility] Healthcare Address [address] [place] [id number] Care Team Providers Care Dietetics Professor Name Role Phone Tucker Sidhu MD Primary Care Provider [phone] Jewel Brooks MD Unavailable [phone]- [phone] Encounter Details Date Type Department Care Team (Late st Contact Info) Description 08/01/2024 Results Follow-Up [facility] at [place] [address] [place] [address] Amee Marquez, [facility] [address] [facility] [address] [place] [address] XR Foot Left 3 or More Views Social History Tobacco Use Types Packs/Day Years Used Date Smoking Tobacco: Never Smokeless Tobacco: Never Alcohol Use Standard Drinks/Week Comments Yes 2 [...] on file Sexual Orientation Not on file documented as of this encounter Plan of Treatment Not on file documented as of this encounter Visit Diagnoses Not on filedocumented in this encounter Care Teams Dietetics Professor Relationship Specialty Start Date End Date Tucker Sidhu MD PCP - General Family Medicine 12/13/19 Jewel Brooks MD [address] [facility] [address] [place] [address] Referring Physician Plastic Surgery 12/18/20 documented as of this encounter
[2024-08-06 14:07] LABS: Alanine Aminotransferase 45 U/L (6-35); Albumin Level 4.9 g/dL (3.5-5.1); Alkaline Phosphatase 58 U/L (38-126); Anion Gap 10 mmol/L (4-12); Aspartate Amino Transferase 43 U/L (14-36); Bilirubin,Total 0.9 mg/dL (0.2-1.3); Blood Urea Nitrogen 9 mg/dL (7-17); Calcium 9.4 mg/dL (8.4-10.2); Carbon Dioxide 26 mmol/L (22-30); Chloride 103 mmol/L (98-107); Cholesterol 149 mg/dL (0-200); Estimated Glomerular Filt Rate > 60; Glucose 89 mg/dL (65-110); HDL Direct 44 mg/dL; Sodium 139 mmol/L (137-145); Total Protein 8.4 g/dL (6.3-8.2); Triglycerides 113 mg/dL (<150)
[2024-08-06 14:17] LABS: LDL Cholesterol Direct 79 mg/dL
== END 2024-08-06 13:32 | disposition home or self-care (01) ==
PROVIDERS: PCP Internal Medicine; Visit Provider Internal Medicine
DX: E03.9 Hypothyroidism, unspecified (principal); E78.2 Mixed hyperlipidemia; Z79.899 Other long term (current) drug therapy
CPT/HCPCS: 36415; 80053; 80061; 84439; 84443